=== PATIENT | female | born 1955 | race Caucasian/White ===

== ENCOUNTER → 2017-07-07 | Outpatient (CLI) | payer OTHER ==
[~2017-07-07] MED LIST: NO HOME MEDICATIONS
== END ==
LOC: COL.RAD 08:31
DX: H91.8X3 Other specified hearing loss, bilateral (principal); Z53.9 Procedure and treatment not carried out, unspecified reason

== ENCOUNTER → 2017-07-13 | Outpatient (CLI) | payer OTHER | LOC: COL.RAD 10:03 | DX: H91.8X3 Other specified hearing loss, bilateral (principal) | CPT/HCPCS: A9585 ==

== ENCOUNTER 2021-05-06 06:54 | Day surgery (SDC) | payer OTHER ==
[~2021-05-06] VITALS: Ht 172.7 cm; Wt 78.8 kg
[2021-05-06] VITALS (8 sets, daily range): BP systolic 105–134; BP diastolic 52–67; PULSE 44–64; TEMP 97.5–98.2
[2021-05-06] MEDS ORDERED: OMEGA-3 1000 MG1 CAP PO (08:16)
[2021-05-06] MEDS ORDERED: CENTRUM SILVER1 TAB (08:17)
[2021-05-06] MEDS ORDERED: NORCO 325 MG-51 TAB PO (12:22)
--- NOTE | 2021-05-06 15:05 | NUR ---
REPORT RECEIVED PER PHONE CALL FROM MARISEL FAN. THIS NURSE WENT TO PACU AND TRANSPORTED PATIENT PER CART FROM PACU TO BAY 1. MONITORS APPLIED. O2 CONTINUES AT 2 LITERS. PATIENT SITTING UP ON CART. PATIENT HAS VOMITTING A SMALL AMOUNT OF LIQUID. VSS. PATIENT ENCOURAGED TO REST. LIGHT DIMMED. BROUGHT BACK TO ROOM.
--- NOTE | 2021-05-06 15:18 | NUR ---
VSS ON 2 LITERS PER NASAL CANNULA. PATIENT RESTING BACK ON CART WITH EYES CLOSED. DRESSINGS TO LEG CD&I. WOUND VAC CONTINUES.
--- NOTE | 2021-05-06 15:30 | NUR ---
VSS ON 2 LITERS. PATIENT STATES NAUSEA HAS IMPROVED. PATIENT DENIES DISCOMFORT.
--- NOTE | 2021-05-06 15:45 | NUR ---
VSS ON ROOM AIR. PATIENT SITTING UP ON CART. PATIENT CONTINUES TO DENY DISCMFORT. PATIENT GIVEN TOAST AND APPLE JUICE TO DRINK. TALKS WITH PATIENT.
--- NOTE | 2021-05-06 16:01 | NUR ---
SAO2 DCREASED TO 91%. O2 AT 2 LITERS REAPPLIED. PATIENT EATS A PEICE OF TOAST AND DENIES NAUSEA. PATIENT CONTINUES RESTING ON CART.
--- NOTE | 2021-05-06 16:25 | NUR ---
1609 O2 REMOVED AND PATIENT ON ROOM AIR. DENIES DISCOMFORT AND NAUSEA. 1620 VSS ON ROOM AIR. PATIENT UP TO COMMODE AND VOIDS WITHOUT PROBLEMS. IV DC'D WITH CATHETER TIP INTACT PRESSURE AND BANDAGE APPLIED. 1625 DISCHARGE INSTRUCTIONS GIVEN VERBAL AND DISCHARGE PACKET PROVIDED. QUESTIONS ANSWERED AND PATIENT VOICED UNDERSTANDING. PATIENT CHANGES INTO STREET CLOTHES. 1645 PAITENT DISCHARGE PER WHEEL CHAIR ACCOMPANIED BY AMB RN TO [facility]. WOUND VAC IN PLACE AND PATIENT TRANSFERS INTO CAR.
--- NOTE | 2021-05-06 16:50 | NUR ---
PATIENT DOES DRINK APPLE JUICE WITHOUT PROBLEMS. DOES GET WALKER FOR PATIENT TO USE AT HOME. PATIENT DOES NON WEIGHT BEARING TRANSFER TO LEFT LEG.
== END 2021-05-06 16:50 | disposition home or self-care (01) ==
LOC: SDCO 06:54
DX: C43.72 Malignant melanoma of left lower limb, including hip (principal); C77.4 Secondary and unspecified malignant neoplasm of inguinal and lower limb lymph nodes
CPT/HCPCS: A9541; J0171; J0690; J1170; J2550; J2704; J3010; J7120

== ENCOUNTER → 2021-05-27 | Outpatient (CLI) | payer OTHER ==
[~2021-05-27] MED LIST changes: +CENTRUM SILVER1 TAB; +NORCO 325 MG-51 TAB PO; +OMEGA-3 1000 MG1 CAP PO
== END ==
LOC: COL.VAS 11:30
DX: I82.402 Acute embolism and thrombosis of unspecified deep veins of left lower extremity (principal)

== ENCOUNTER → 2021-06-19 | Outpatient (CLI) | payer OTHER, MEDICARE | LOC: COL.VAS 11:44 | DX: I82.402 Acute embolism and thrombosis of unspecified deep veins of left lower extremity (principal) ==

== ENCOUNTER → 2021-11-06 | Outpatient (CLI) | payer OTHER, MEDICARE | LOC: COL.VAS 09:11 | DX: I82.402 Acute embolism and thrombosis of unspecified deep veins of left lower extremity (principal) ==

== ENCOUNTER → 2022-09-17 | Outpatient (CLI) | payer OTHER | LOC: MC.RAD 07:18 | DX: Z12.31 Encounter for screening mammogram for malignant neoplasm of breast (principal) ==

== ENCOUNTER → 2023-07-13 | Outpatient (REF) | payer OTHER ==
[2023-07-13 17:20] LABS: BAND 2 % (0-10); EOSINOPHIL 4 % (0-4); LYMPHOCYTE 38 % (20.0-51.0); NEUTROPHILS 49 % (42.0-75.2); PLATELET ESTIMATE NORMAL (NORMAL)
== END ==
LOC: ZCOL.LAB 13:39
PROVIDERS: Family Medicine
DX: Z85.820 Personal history of malignant melanoma of skin (principal)

== ENCOUNTER → 2023-10-11 | Outpatient (CLI) | payer OTHER ==
[2023-10-11 21:08] LABS: BAND 6 % (0-10); EOSINOPHIL 1 % (0-4); LYMPHOCYTE 32 % (20.0-51.0); NEUTROPHILS 51 % (42.0-75.2); PLATELET ESTIMATE NORMAL (NORMAL)
[2023-10-11 21:09] LABS: ANISOCYTOSIS 1+
== END ==
LOC: ZCOL.LAB 18:09
PROVIDERS: Family Medicine
DX: Z85.820 Personal history of malignant melanoma of skin (principal)

== ENCOUNTER → 2023-10-25 | Outpatient (CLI) | payer OTHER | LOC: MC.RAD 08:51 | DX: Z12.31 Encounter for screening mammogram for malignant neoplasm of breast (principal) ==

== ENCOUNTER → 2024-04-11 | Outpatient (REF) | payer OTHER ==
[2024-04-11 20:21] LABS: BAND 1 % (0-10); BASOPHIL 1 % (0-2); EOSINOPHIL 2 % (0-4); LYMPHOCYTE 28 % (20.0-51.0); NEUTROPHILS 58 % (42.0-75.2)
== END ==
LOC: COL.LAB 19:44
PROVIDERS: Family Medicine
DX: Z85.820 Personal history of malignant melanoma of skin (principal)